=== PATIENT | male | born 1940 | race Caucasian/White ===

== ENCOUNTER 2017-10-11 16:13 | Outpatient (CLI) | END 2017-10-11 16:14 | disposition home or self-care (01) | LOC: FCC-LAB 16:13 | PROVIDERS: ATTEND Family Medicine | DX: R06.2 Wheezing (principal); R53.81 Other malaise; R53.83 Other fatigue; Z91.09 Other allergy status, other than to drugs and biological substances | CPT/HCPCS: 36415; 80053; 85025 ==